=== PATIENT | male | born 1995 | race Caucasian/White ===

== ENCOUNTER 2016-05-27 19:12 | Emergency (ER) | payer OTHER ==
[~2016-05-27] VITALS: Ht 167.6 cm; Wt 76.5 kg
[2016-05-27 19:13] VITALS: Ht 167.6 cm; Wt 76.5 kg
[2016-05-27] MEDS ORDERED: NICARDipine HCL 30 MG CAPSULE PO ONE (20:30)
[2016-05-27] MEDS ORDERED: IBUPROFEN 800 MG TAB PO ONE (20:30)
--- NOTE | 2016-05-27 20:46 | RADRPT ---
PROCEDURE: US DVT. CLINICAL INDICATION: Left upper extremity pain. TECHNIQUE: Multiple longitudinal and transverse images of the the left upper extremity veins were obtained with long scale and color Doppler imaging. 2D grayscale measurements with compression, col or Doppler flow, and augmentation was performed. COMPARISON: No prior studies are available for comparison. FINDINGS: The left jugular vein, subclavian vein, axillary vein, and brachial veins are normally compressible throughout. The basilic vein, radial vein and ulnar vein are also compressible throughout. Color flow demonstrates normal filling of the vessel. Normal waveforms are visualized and there is normal response to augmentation. The left radial vein is unremarkable as well. IMPRESSION: 1. No evidence of a deep vein thrombosis involving the left upper extremity. RPTAT: HFN .Chantale Mullen MD, MD Date Time Electronically viewed and signed by .Chantale Mullen MD, MD on 05/27/2016 20:46 .N/
[2016-05-27] MEDS ORDERED: IBUP-1542 PO (20:52)
--- NOTE | 2016-05-27 21:01 | ERD ---
ER Documentation Chief Complaint Date/Time DATE: 05/27/16 TIME: 20:57 Chief Complaint left arm pain since yesterday, denies injury HPI Patient is a 20-year-old male with hypertension who presents with left arm pain. The symptoms started yesterday. The pain was worse today. The patient has no fevers. The patient has had no treatment as of yet. There was no trauma. The patient denies chest pain. The patient does not take his blood pressure medicines regularly. Upon review of old medical records this is the patient's third visit to the ER. He does not know the name of his primary doctor. ROS All systems reviewed and are negative except as per history of present illness. Medications Home Meds Active Scripts Ibuprofen* (Motrin*) 600 Mg Tab, 600 MG PO Q6H Y for PAIN AND OR ELEVATED TEMP, #30 TAB Prov:JAVED RODRIGEZ MD 05/27/16 Allergies Allergies: Coded Allergies: No Known Allergy (Unverified , 05/27/16) PMhx/Soc Positive for hypertension Medical and Surgical Hx: pt denies Surgical Hx Hx Alcohol Use: No Hx Substance Use: No Hx Tobacco Use: No FmHx Family History: No diabetes Physical Exam Vitals Vital Signs Date Time Temp Pulse Resp B/P Pulse Ox O2 Delivery O2 Flow Rate FiO2 05/27/16 19:13 98.5 117 20 177/86 100 Physical Exam Const: No acute distress Head: Atraumatic Eyes: Normal Conjunctiva ENT: Normal External Ears, Nose and Mouth. Neck: Full range of motion..~ No meningismus. Resp: Clear to auscultation bilaterally Cardio: Regular rate and rhythm, no murmurs Abd: Soft, non tender, non distended. Normal bowel sounds Skin: No petechiae or rashes, no signs of abscess or cellulitis Back: No midline or flank tenderness Ext: Pain to palpation with the left upper extremity, pulses are strong in the left upper extremity with good cap refill in all 5 fingers Neur: Awake and alert, 3 nerve roots of the left upper extremity are intact, able to spread fingers, able to give a thumbs up and okay sign, able to touch all fingers to thumb Psych: Normal Mood and Affect Results 24 hrs Current Medications Medications (Trade) Dose Ordered Sig/Laura Route PRN Reason Start Time Stop Time Status Last Admin Dose Admin Nicardipine HCl (Cardene) 30 mg ONCE ONCE PO 05/27/16 20:30 05/27/16 20:31 DC Ibuprofen (Motrin) 800 mg ONCE ONCE PO 05/27/16 20:30 05/27/16 20:31 DC Procedures/MDM X-ray Humerus 2V Interpreted by me: Bones: No fracture Joints: No dislocation Foreign body: None Left upper extremity ultrasound negative per radiology. Patient is a 20-year-old male with hypertension who presents with left-sided arm pain. The ultrasound and x-ray are negative. At this point I see no sign of fracture or dislocation. I doubt DVT. There is no sign of neurovascular compromise. There is no sign of infection such as cellulitis or abscess. The patient has had no fever and I doubt myositis. I believe outpatient management is appropriate. The patient will need to follow-up with his primary doctor within 24-48 hours. He can return sooner for any worsening symptoms. Departure Diagnosis: Primary Impression: Pain of left upper arm Additional Impression: Hypertension Hypertension type: essential hypertension Qualified Code: I10 - Essential hypertension Condition: Fair Patient Instructions: Pain, Uncertain Cause (Acute) Referrals: Your doctor Additional Instructions: Llame al doctor MAANA y vick boo RUCHI PARA DENTRO DE 1-2 .Dgale a la secretaria que nosotros le instruimos hacer esta rcuhi.Avise o llame si medina condicin se empeora antes de la ruchi. Regresa aqui si peor o no mejor. JAVED RODRIGEZ MD May 27, 2016 21:01
[2016-05-27 21:20] VITALS: BP 171/82
--- NOTE | 2016-05-27 21:20 | RADRPT ---
PROCEDURE: Left humerus CLINICAL INDICATION: Pain TECHNIQUE: AP and lateral views COMPARISON: None available FINDINGS: The visualized soft tissues and osseous structures are normal. No fractures or dislocations are pre sent. The joint spaces are well preserved. No radiodense foreign bodies are present. IMPRESSION: 1. Normal left humerus series. RPTAT: HDC .Alexus Taylor MD, Date Time Electronically viewed and signed by .Alexus Taylor MD, on 05/27/2016 21:20 .C/
== END 2016-05-27 21:21 | disposition home or self-care (01) ==
LOC: FTE 19:12
DX: M79.622 Pain in left upper arm (principal); I10 Essential (primary) hypertension
CPT/HCPCS: 73060; 93971; Z7502; Z7610